=== PATIENT | female | born 1960 | race Caucasian/White ===

== ENCOUNTER → 2019-09-15 16:59 | Outpatient (CLI) | payer OTHER, SELFPAY ==
--- NOTE | ~2019-09-15 | XR_ITS ---
EXAMINATION: XR lumbar spine 2-3V DATE: 09/15/2019 17:22 INDICATION: Low back pain TECHNIQUE: Anteroposterior and lateral views of the lumbar spine, and cone-down lateral view of the l umbosacral junction were obtained. COMPARISON: 10/15/2010 FINDINGS: There are 2 mm of retrolisthesis of L4 on L5. Vertebral body alignment is otherwise normal. There is mild loss of intervertebral disc space height at L5-S1. Small degenerative osteophytes proj ect from the anterior endplates of multiple vertebral bodies. 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 The bowel gas pattern is normal. A moderate volume of colonic stool is pre sent. The vertebral body heights are normal. IMPRESSION: 1. Mild lumbar spondylosis without acute findings. Reviewed, dictated and finalized at location A. [employer]
== END ==
PROVIDERS: Visit Provider Chiropractor
DX: M47.896 Other spondylosis, lumbar region (principal)
CPT/HCPCS: 72100

== ENCOUNTER 2020-11-21 08:34 | Outpatient (CLI) | payer OTHER, SELFPAY ==
--- NOTE | 2020-11-21 11:30 | NEURO_ITS ---
Impression: # Complains of funny sensation in lower extremities. 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 # Neurogenic changes in muscles noted but no active changes that is fibrillations or myotonia. # Clinical correlation recommended. Nerve Conduction Studies Anti Sensory Summary Table Stim Site NR Peak (ms) P-T Amp (?V) Site1 Site2 Delta-P (ms) Dist (cm) Durga (m/s) Left Sup Fibular Anti Sensory (Ant Lat Mall) NO RESPONSE 14 cm NR 14 cm Ant Lat Mall 16.0 Right Sup Fibular Anti Sensory (Ant Lat Mall) 14 cm 3.5 13.6 14 cm Ant Lat Mall 3.5 16.0 46 Left Sural Anti Sensory (Lat Mall) NO RESPONSE Calf NR Calf Lat Mall 16.0 Right Sural Anti Sensory (Lat Mall) Calf 4.2 5.5 Calf Lat Mall 4.2 16.0 38 Motor Summary Table Stim Site NR Onset (ms) O-P Amp (mV) Site1 Site2 Delta-0 (ms) Dist (cm) Durga (m/s) Left Peroneal Motor (Vastus Med) Ankle 5.9 0.6 Popit Ankle 8.6 39.0 45 Popit 14.5 0.8 Right Peroneal Motor (Vastus Med) Ankle 6.1 1.0 Popit Ankle 8.4 39.0 46 Popit 14.5 1.6 Left Tibial Motor (Abd Nowak Brev) Ankle 5.6 6.9 Knee Ankle 10.8 43.0 40 Knee 16.4 2.5 Right Tibial Motor (Abd Nowak Brev) Ankle 5.9 4.4 Knee Ankle 10.2 42.0 41 Knee 16.1 1.9 F Wave Studies NR F-Lat (ms) L-R F-Lat (ms) Left Peroneal (Mrkrs) (EDB) 58.01 0.47 Right Peroneal (Mrkrs) (EDB) 57.54 0.47 Left Tibial (Mrkrs) (Abd Hallucis) 57.31 1.56 Right Tibial (Mrkrs) (Abd Hallucis) 58.88 1.56 EMG Side Muscle Nerve Root Ins Act Fibs Amp Dur Recrt Comment Right AntTibialis Dp Br Fibular L4-5 Nml Nml Nml >12ms Reduced Right Gastroc Tibial S1-2 Nml Nml Nml >12ms Reduced Right Fibularis Long Sup Br Fibular L5-S1 Nml Nml Nml Nml Nml Right Flex Dig Long Tibial L5-S2 Nml Nml Nml >12ms Reduced Right Ext Dig Brev Dp Br Fibular L5, S1 Nml Nml Nml >12ms Reduced Left AntTibialis Dp Br Fibular L4-5 Nml Nml Nml >12ms Reduced Left Gastroc Tibial S1-2 Nml Nml Nml >12ms Reduced Left Fibularis Long Sup Br Fibular L5-S1 Nml Nml Nml Nml Nml Left Flex Dig Long Tibial L5-S2 Nml Nml Nml >12ms Reduced Left Ext Dig Brev Dp Br Fibular L5, S1 Nml Nml Nml >12ms Reduced MTDD
== END 2020-11-21 08:35 | disposition home or self-care (01) ==
PROVIDERS: PCP Family Medicine; Visit Provider Family Medicine
DX: M54.16 Radiculopathy, lumbar region (principal)
CPT/HCPCS: 95886; 95910

== ENCOUNTER 2021-08-16 00:04 | Day surgery (SDC) | payer OTHER, SELFPAY ==
[2021-08-01 11:08] VITALS: BMI 23.7
--- NOTE | 2021-08-15 12:00 | PM.HPGS ---
History of Present Illness History of Present Illness Consent: Risks, benefits, and alternatives have been discussed and questions answered. Patient agrees to proceed with procedure. Chief complaint: neoplasm screening Narrative: Crista Wells is a 61 year old female was referred for colon cancer screening. There is a family history of colon cancer in her grandfather. Review of Systems Review of Systems: All systems reviewed & are unremarkable except as noted in HPI and below PMFSH Past Medical History Medical History Hyperlipidemia Neuropathy Social History Social History Smoking status: Never smoker Alcohol intake: current Alcohol use details: 1-2 drinks per month Substance use: never Substance use type: does not use Living arrangements: with family Spiritual care concerns: No Meds Home Medications and Allergies Home Medications Medication Instructions Recorded Confirmed Type atorvastatin 10 mg PO HS 08/01/21 08/01/21 History gabapentin 300 mg PO TID 08/01/21 08/01/21 History meloxicam 15 mg PO DAILY 08/01/21 08/01/21 History Allergies Allergy/AdvReac Type Severity Reaction Status Date / Time adhesive tape Allergy Rash Verified 08/16/21 07:42 Exam Resp: Auscultation: clear to auscultation bilaterally Cardio: Rate: regular rate Rhythm: regular rhythm GI: GI Palp: Yes Soft to palpation and No Tenderness to palpation present (GI) Assessment and Plan Assessment and plan (1) Colon cancer screening: Code(s): Z12.11 - Encounter for screening for malignant neoplasm of colon Status: Acute Assessment and Plan: Colonoscopy with possible biopsy or polypectomy or cautery or injection of substances.
--- NOTE | 2021-08-16 07:27 | P.PNAN_ITS ---
Anes - Initial Pre Proc Eval Procedure: Operation Date: 08/16/21 09:00 Proposed Procedures p Screening Colonoscopy - Sunday Patrick MD Date/Time: 08/16/21 07:27 Surgeon: Sunday Patrick MD Pre Op Diagnosis: neoplasm screening Patient Data Age: 61 Gender: F Height: 1.78 m Weight: 75 kg Allergies Allergy/AdvReac Type Severity Reaction Status Date / Time adhesive tape Allergy Rash Verified 08/16/21 07:42 Home Medications Medication Instructions Recorded Confirmed Type atorvastatin 10 mg PO HS 08/01/21 08/01/21 History gabapentin 300 mg PO TID 08/01/21 08/01/21 History meloxicam 15 mg PO DAILY 08/01/21 08/01/21 History Patient hx anesthesia problems: none Family hx anesthesia problems: none Results Review: All pre-operative results and documents have been reviewed as part of the pre-operative evaluation. [facility] Past Medical History Medical History (Updated 08/16/21 @ 07:27 by Marcelo Navarro DO) Hyperlipidemia Neuropathy Social History Social History Smoking status: Never smoker Alcohol intake: current Alcohol use details: 1-2 drinks per month Substance use: never Substance use type: does not use Living arrangements: with family Spiritual care concerns: No Anes - Eval Final PreProcedure Day of Procedure 08/16/21 07:27 Patient weight: normal Heart: regular rate and rhythm Lungs: clear to auscultation and normal air movement Airway: Mallampati scale class II Neurological: alert and oriented Last oral intake: >/= 8 hours ASA classification: II Emergent: no Anesthetic plan: proceed Anesthesia type and monitoring: general GIVS and standard monitoring Results Review: All pre-operative results and documents have been reviewed as part of the pre-operative evaluation. Informed Consent: The patient's anesthetic plan and its attendant risks and benefits were discussed with the patient/family/POA. Questions were solicited and answers provided to the satisfaction of the patient/family/POA.
[2021-08-16 07:43] VITALS: BP 129/71; PULSE 91; RESP 18; TEMP 36.5; O2SAT 100
[2021-08-16] MEDS: LACTATED RINGERS 1,000 ML 150 ML IV CONT (07:44)
[2021-08-16 08:54] VITALS: BP 92/55; PULSE 73; RESP 17; O2SAT 100
[2021-08-16 09:04] VITALS: BP 111/73; PULSE 78; RESP 17; O2SAT 100
[2021-08-16 09:14] VITALS: BP 123/76; PULSE 65; RESP 18; O2SAT 97
== END 2021-08-16 09:30 | disposition home or self-care (01) ==
PROVIDERS: PCP Family Medicine; Visit Provider Internal Medicine Gastroenterology
PROC: 0DJD8ZZ Inspection of Lower Intestinal Tract, Via Natural or Artificial Opening Endoscopic (ICD-10-PCS; CPT 45378; principal; 2021-08-16 09:00)
DX: Z12.11 Encounter for screening for malignant neoplasm of colon (principal); Z80.0 Family history of malignant neoplasm of digestive organs; K64.8 Other hemorrhoids; K63.5 Polyp of colon; E78.5 Hyperlipidemia, unspecified; G62.9 Polyneuropathy, unspecified
CPT/HCPCS: 45380; 88305; J2704; J7120

== ENCOUNTER 2024-09-17 10:33 | Outpatient (CLI) | payer BC, SELFPAY ==
--- NOTE | ~2024-09-17 | US_ITS ---
EXAMINATION: US thyroid DATE: 09/17/2024 10:56 INDICATION: Goiter TECHNIQUE: Multiple ultrasound images of the thyroid were obtained. COMPARISON: None. FINDINGS: The right thyroid lobe measures 4.9 x 2.2 x 4.1 cm. Within the right lobe of the thyroid gland is a 35 x 23 x 29 mm nodule: Composition - spongiform Echogenicity -hyperechoic/isoechoic (1) Shape - wider than tall Margin - smooth Echogenic foci - none. = TR1, benign. The left thyroid lobe measures 5.2 x 2.0 x 2.4 cm. The isthmus measures 0.5cm in anterior to posterior dimension. Within the isthmus of the thyroid gland (to the right of midline) is a 26 x 11 x 21 mm nodule: Composition - spongiform Echogenicity -hyperechoic/isoechoic (1) Shape - wider than tall Margin -ill-defined Echogenic foci - none. = TR1, benign. IMPRESSION: TR 1 nodules within both the right lobe of the thyroid gland and within the isthmus, to the right of midline which are benign, no FNA is recommended. Follow-up may be performed in 2 years. Reviewed, dictated and finalized at location A. [employer] IMPRESSION: TR 1 nodules within both the right lobe of the thyroid gland and within the ist hmus, to the right of midline which are benign, no FNA is recommended. Follow-up may be performed in 2 years.
== END 2024-09-17 10:34 | disposition home or self-care (01) ==
PROVIDERS: PCP Physician Assistant; Visit Provider Physician Assistant
DX: E04.9 Nontoxic goiter, unspecified (principal)
CPT/HCPCS: 76536